=== PATIENT | male | born 1990 | race African-American/Black ===

== ENCOUNTER 2017-07-24 15:42 | Inpatient (IN) | payer OTHER ==
[~2017-07-24] VITALS: Ht 167.6 cm; Wt 78.2 kg
[~2017-07-24 15:42] MED LIST: CLOTRIMAZOLE15 GM TOP; HALOPERIDOL2 M1 PO; HALOPERIDOL5 MG PO; HYDROCORTISO28.35 GM EXT; NICOTINE PATCH1 EAC1 TOP; PREDNISONE10 M2 PO
--- NOTE | 2017-07-24 16:26 | ED PSYCHIATRIC COMPLAINT ---
History of Present Illness General Chief Complaint: General Adult Stated Complaint: BIBA FOR NON COMPLIANCE WITH MEDS Source: patient, EMS, police Exam Limitations: PSYCHIATRIC HISTORY Vital Signs & Intake/Output Vital Signs & Intake/Output Vital Signs Date Time Temp Pulse Resp B/P B/P Pulse O2 O2 Flow FiO2 Mean Ox Delivery Rate 07/25 1100 98.3 80 18 124/68 98 Room Air 07/25 0840 97.1 82 18 128/70 98 Room Air 07/25 0620 98.6 86 18 135/75 98 Room Air 07/25 0014 98.7 87 18 144/94 95 Room Air 07/24 2230 98.8 84 17 144/92 98 Room Air 07/24 2009 98.8 106 16 142/93 99 Room Air 07/24 1618 Room Air 07/24 1617 99.0 105 16 142/93 97 Room Air ED Intake and Output 07/25 0000 07/24 1200 Intake Total Output Total Balance Patient 170 lb Weight Weight Reported by Patient Measurement Method Allergies Coded Allergies: No Known Allergies (04/24/17) Reconcile Medications Haloperidol 5 MG TABLET 1 TAB PO BID psychosis Hydrocortisone 0.5 % CREAM..G. 1 BENITO EXT TID rash Nicotine (Nicotine Patch) 7 MG/24 HOUR PATCH.TD24 1 PAT TOP DAILY smoking Triage Note: PATIENT BIBA FROM HOME ON A PEER. THE PATIENT HAS SCHIZOPHRENIA AND HAS NOT BEEN COMPLIENT WITH TAKING HALDOL. THE PATIENT HAD NURSES COMING IN EVERY DAY, BUT NOT ANYMORE. THE PATIENT HAS A HISTORY OF BEING COMBATIVE AND THE FAMILY DOES NOT FEEL SAFE WITH HIM AT HOME. Triage Nurses Notes Reviewed? yes HPI: Patient presents for evaluation of noncompliance with medications for schizophrenia. The patient apparently has refused to have his visiting nurse evaluate him and it seems he has been noncompliant with medications over the past few days. Patient's family is becoming increasingly concerned about his psychiatric state. The patient himself is a rather poor historian and I suspect that he is hearing voices and suffering from walking. (Marisol AGUILAR,Negrito Blum) Past History Travel History Traveled to [place] past 21 day No Medical History Any Pertinent Medical History? 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 No (Marisol AGUILAR,Negrito Blum) Review of Systems Review of Systems Constitutional: Reports: no symptoms. EENTM: Reports: no symptoms. Respiratory: Reports: no symptoms. Cardiovascular: Reports: no symptoms. GI: Reports: no symptoms. Genitourinary: Reports: no symptoms. Musculoskeletal: Reports: no symptoms. Skin: Reports: rash. Neurological/Psychological: Reports: no symptoms. Hematologic/Endocrine: Reports: no symptoms. Immunologic/Allergic: Reports: no symptoms. All Other Systems: Reviewed and Negative (Marisol AGUILAR,Negrito Blum) Physical Exam Physical Exam General Appearance: SEE BELOW Neurological/Psychiatric: SEE BELOW Comments: General: Alert, calm, cooperative Head: Normocephalic, atraumatic Eyes: Normal inspection, no nystagmus, EOMI Ears: Normal inspection Nose: Normal inspection Throat: Moist mucosa Neck: Supple, no goiter Heart: Regular rate and rhythm, no murmurs rubs or gallops Lungs: Clear to auscultation bilaterally with good air entry Abdomen: Soft nontender nondistended, normal bowel sounds Chest: Nontender Extremities: Normal range of motion grossly, no tremors present, no cyanosis clubbing or edema of the upper extremities Neurologic: cranial nerves II through XII grossly intact, speech clear but sparse, gait normal Psychiatric: No apparent delusions, no pressured speech but I suspect thought blocking and auditory hallucinations (Marisol AGUILAR,Negrito Blum) SAD PERSONS Done? unobtained due to conditi (Lizzette AGUILAR,Magdy Kaiser) Progress Differential Diagnosis: schizophrenia Comments: 07/24/2017 7:25:43 PM I have reevaluated Noe. His affect has flattened considerably and he is nearly noncommunicative. I feel he is responding to internal stimuli, auditory hallucinations and is thought blocking. The audio video repairer was unable to evaluate him. I have had a lengthy discussion with him regarding speaking with the audio video repairer and restarting his usual medications. However I was unable to get any answer from him regarding these 2 issues. He seems nearly mute. We will need to keep him here in the emergency department until we are able to better evaluate him from a psychological standpoint. 07/24/2017 11:27:20 PM patient signed out to Dr. Crocker at shift chart changer. Crisis evaluation pending. (Marisol AGUILAR,Negrito Blum) Plan of Care: Orders Procedure Date/time Status Regular Diet 07/25 B Active Admit to inpatient 07/25 1410 Active Patient Safety Monitor 07/24 162 Active URINE DRUG SCREEN FOR ER ONLY 07/24 162 Complete ETHANOL 07/24 162 Complete CBC WITHOUT DIFFERENTIAL 07/24 162 Complete BASIC METABOLIC PANEL 07/24 162 Complete ED CRISIS PSYCH CONSULT 07/24 162 Active Current Medications Sig/Kyle Start time Last Medication Dose Stop Time Status Admin Haloperidol 5 MG ONE ONE 07/25 1415 UNVr (Haldol) 07/25 1416 Laboratory Tests 07/24/17 1645: Urine Opiates Screen < 100.00, Methadone Screen < 40, Barbiturate Screen < 60, Ur Phencyclidine Scrn < 6.00, Amphetamines Screen < 100, U Benzodiazepines Scrn < 85, Urine Cocaine Screen < 50, Urine Cannabis Screen < 5.00 07/24/17 1640: Anion Gap 17 H, Estimated GFR > 60, BUN/Creatinine Ratio 12.0, Glucose 98, Calcium 9.8, CBC w Diff NO MAN DIFF REQ, RBC 5.32, MCV 90.2, MCH 30.6, RDW 13.5, MPV 8.4, Gran % 72.4, Lymphocytes % 20.4 L, Monocytes % 6.3, Eosinophils % 0.2, Basophils % 0.7, Absolute Granulocytes 4.0, Absolute Lymphocytes 1.1 L, Absolute Monocytes 0.3, Absolute Eosinophils 0, Absolute Basophils 0, PUBS MCHC 33.9, Serum Alcohol < 10.0 7 AM 07/25 PATIENT SIGNED OUT TO ME BY DR CROCKER, PENDING CRISIS REEVALUATION. 2:10 PM PATIENT ADMITTED TO [facility]. (Lizette AGUILAR,Debbie) Hand-Off Endorsed To: Debbie Bauer MD Endorsed Time: 0700 Pending: consult Comments: 07/24/2017 11:27:20 PM patient signed out to Dr. Crocker at shift chart changer. Crisis evaluation pending. (Lizzette AGUILAR,Magdy Kaiser) Departure Departure Condition: Stable Referrals: Patient Has No Primary Care Dr (PCP/Family) Departure Forms: Customer Survey General Discharge Information (Marisol AGUILAR,Negrito Blum) Departure Disposition: STILL A PATIENT Clinical Impression Primary Impression: Schizophrenia (Lizzette AGUILAR,Magdy Kaiser) Departure Time of Disposition: 1409 Psych Admission Note Psychiatric Admission: I have seen and evaluated RICARDO MIX. I have also reviewed all the pertinent lab results and diagnostic results. RICARDO MIX will be admitted to our inpatient Psychiatric unit for treatment and care. (Lizette AGUILAR,Debbie)
[2017-07-24 16:56] LABS: ABSOLUTE BASOPHIL COUNT 0 /CUMM (0.0-0.2); ABSOLUTE EOSINOPHIL COUNT 0 /CUMM (0.0-0.7); ABSOLUTE LYMPH COUNT 1.1 /CUMM (1.2-3.4); ABSOLUTE MONOCYTE COUNT 0.3 /CUMM (0.10-0.60); BASOPHIL % 0.7 % (0.0-2.0); EOSINOPHIL % 0.2 % (0-5); GRANULOCYTE % 72.4 % (42.2-75.2); HEMATOCRIT 47.9 % (42-52); MEAN CORPUSCULAR HGB 30.6 PG (27.0-31.0); MEAN CORPUSCULAR HGB CONC 33.9 G/DL (33.0-37.0); MEAN CORPUSCULAR VOLUME 90.2 FL (80.0-94.0); MEAN PLATELET VOLUME 8.4 FL (7.4-10.4); PLATELET COUNT 207 /CUMM (130-400); RBC DISTRIBUTION WIDTH 13.5 % (11.5-14.5); RED BLOOD CELL CT 5.32 /CUMM (4.70-6.10); WHITE BLOOD CELL COUNT 5.5 /CUMM (4.8-10.8)
--- NOTE | 2017-07-24 19:13 | ED PSY CRISIS COLLATERAL NOTE ---
Collateral Note Collateral Note Family/Inform/Mina Contacts: Collateral with patient's sister, Estuardo Zarate [phone]: Sister states she believes patient has not been taking his medications for at least 4 days. He was receiving visiting nursing services daily through [facility], but according to sister, they have not come to the home. Sister reports she has not been home since Sunday and states patient was fine. She returned home today and states "I see him, he does not look ok." She had difficulty describing what that meant, but states "he's scaring us, we are talking to him and he won't respond." She also believes that patient has been drinking alcohol. He sees a Psychiatrist and attends "drug and alcohol courses" at [facility]; sister could not remember provider's names. She states when he was discharged from Inpatient Psychiatry, he was "doing good." She believes he is paranoid and states "I feel he will harm somebody." Sister would like to be called with an update.
--- NOTE | 2017-07-25 11:00 | ED PSYCH CRISIS CONSULTATION ---
Crisis Consult Basic Assessment Date of Consult: 07/25/17 Responsible Person/Accompanied By: Self Insurance Authorization: Insurance #1: Insurance name: SCOTT FARRELL Phone number: Policy number: [id number] Group number: Authorization number: ED Provider: Patient's ED Provider: Debbie Bauer MD Primary Care Physician: Patient's PCP: Patient Has No Primary Care Dr PCP's Phone Number: Current Psychiatrist: Dr. Carson (Dr. Carson) Chief Complaint: Medication non-compliance Patient's Quote: "people keep calling the police and the ambulance" Present Illness: Pt is a 26 year old single male presenting to the ED on a PEER. PEER states the pt was uncooperative and would not respond to the police, also per family reports the pt has not been taking medication. Pt currently denies SI/HI/AH/VH or feeling hopeless/helpless/worthless. On a scale of 1-10 (10 being most severe ) pt rates anxiety a 7 and depression 4/5. Pt dx with schizophrenia, recently discharged from [facility] due to medication non-compliance, paranoid bx, AH, and HI. Upon d/c the pt's mental status had improved. Pt reports staying with his sister who had not been home and "all these people stay there, come and go". This inspector automatic typewriter confirmed pt's residing with sister who stated he is no longer able to return. The pt is monitored by multiple family members including uncle and cousins who visit the home intermittently. The pt has been receiving services from [facility] (daily service, last visit 07/19/17) and [facility] (pt reports missed appointments due to transportation issues). Pt reports he is unsure as to why the police were called and states he is taking his medication and "doing good". Pt presents in hospital scrubs with anxious mood and blunted affect, speech delayed. Pt's denies substance use, states he is currently applying for jobs and trying to attend night school. Pt reports decrease in appetite, difficulty sleeping despite medication causing him to feel fatigued. Pt denies change in motivation, concentration, or energy. Collateral obtained from the pt's sister, Jennifer Bellamy ([phone] ). The pt's sister reports that she has not been in the home until Sunday when she reports observing "the pt looked like he does when he has an episode." The pt's sister explained she felt the pt "wasn't himself" as evidenced by looking pissed off and not responding to others. Pt's sister reports no one has seen the pt take his medication and believes he has not taken medication for 5 days. Mia states she is unable to "take care of an adult" noting he may not return to her home and she would like him "in a program". Mia reports she called 911 twice yesterday (07/25/17) due to pt "not doing well." The pt's sister reports she is concerned the pt is "at the beginning of an episode" and afraid of "what he might do." Patient's Address: [address] [place] [address] Other Phone Number: Who Do You Live With? Sister (no longer welcome per sister) Family/Informants Interviewed: Sister, Jennifer Bellamy ([phone]) Allergies - Coded Allergies: No Known Allergies (04/24/17) Laboratory Results: Laboratory Tests 07/24/17 1645: Urine Opiates Screen < 100.00, Methadone Screen < 40, Barbiturate Screen < 60, Ur Phencyclidine Scrn < 6.00, Amphetamines Screen < 100, U Benzodiazepines Scrn < 85, Urine Cocaine Screen < 50, Urine Cannabis Screen < 5.00 07/24/17 1640: Anion Gap 17 H, Estimated GFR > 60, BUN/Creatinine Ratio 12.0, Glucose 98, Calcium 9.8, CBC w Diff NO MAN DIFF REQ, RBC 5.32, MCV 90.2, MCH 30.6, RDW 13.5, MPV 8.4, Gran % 72.4, Lymphocytes % 20.4 L, Monocytes % 6.3, Eosinophils % 0.2, Basophils % 0.7, Absolute Granulocytes 4.0, Absolute Lymphocytes 1.1 L, Absolute Monocytes 0.3, Absolute Eosinophils 0, Absolute Basophils 0, PUBS MCHC 33.9, Serum Alcohol < 10.0 (Sandi Fontaine) Basic Assessment Insurance Authorization: Insurance #1: Insurance name: SCOTT Nascimento [employer]og[employer] JAMI Phone number: Policy number: [id number] Group number: Authorization number: LUIS ARMANDOZIANAYELI MIX [id number] 1990 RICARDO MIX [id number] Pended Authorization # Client Authorization # Type of Request [id number] INITIAL (Goran LUKE,Deyanira) Current Medications - Scheduled Medications Haloperidol 5 MG TABLET 1 TAB PO BID psychosis #14 TAB Prescribed by Asael Mann on 06/22/17 Last Taken: 07/24/17 0800 (John LUKE,Aly) Past History Past Medical History Neurological: NONE EENT: NONE Cardiovascular: NONE Respiratory: NONE Gastrointestinal: NONE Hepatic: NONE Renal: NONE Musculoskeletal: NONE Psychiatric: schizophrenia Endocrine: NONE Blood Disorders: NONE Cancer(s): NONE 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: 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 and herpes, patient report Past Surgical History Surgical History: non-contributory Psychosocial History Strengths/Capabilities: OP services in place and family supports Physical Limitations (Interventions): None Psychiatric Treatment History Psych Treatment Psychiatric Treatment Yes Inpatient Treatment Yes Outpatient Treatment Yes Location of Treatment [facility] Reason for Treatment Schizophrenia and alcohol use d/o Dates of Treatment Multiple, most recent [facility] June 2017, currently at care Response to Treatment Pt continues to struggle with medication compliance, psychiatric symptoms have decreased upon d/c from [facility] Diagnosis by History: F20.9 Schizophrenia F12.20 Cannabis use d/o 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 Alcohol use d/o, moderate Pt reports substance use is in remission Substance Use/Abuse History Drug Use/Abuse Substances Used/Abused Yes Substance Used/Abused Alcohol First Use unknown Last Used June 2017 How much used/taken unknown How often daily For how long unknown Route of use oral Substance Abuse Treatment Substance Abuse Treatment Past Substance Abuse TX Yes Inpatient Treatment Yes Outpatient Treatment Yes Location of Treatment unknown Reason for Treatment alcohol use d/o Dates of Treatment unknown Response to Treatment pt denies use of alcohol or any substances at this time Comments: Pt reports inconsistent with medical records, denies recent substance use (Sandi Fontaine) Current Mental Status Mental Status Orientation: Person, Place, Situation Affect: Anxious, Blunted Speech: Delayed, Soft Neuro-vegetative: Appetite Decreased, Sleep Disturbance Appearance Appearance- Dress/Hygiene: Pt presents in hospital scrubs with mild odor Behaviors Thought Process: Thought Blocking Thought Content: WNL Memory: WNL Insight: Poor SI/HI Risk Assessment Past Suicidal Ideation/Attempts Yes Current Suicidal Ideation/Att No Past Homicidal Ideation/Att: Yes (per records, pt denies) Current Homicidal Ideation/Attempts No Degree of Intent: None Danger To: Self Gravely Disabled: Lack of Insight, Poor Impulse Control, Poor Judgment Risk Factors: chronic/serious med cond., high anxiety/distress, SA/MH hospitalized, substance abuse, poor impulse control, male, limited support Lethality Ratin PTSD Checklist PTSD Done? 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 Carson, pt is reccomended to inpatient admission. The pt requires admission to monitor for safety, further evaluate mental state, and develop safety plan. Type of IP Admission: Voluntary Referrals Patient Has No Primary Care Dr (PCP/Family) (Sandi Fontaine) (Sandi Fontaine)
--- NOTE | 2017-07-25 15:11 | IP CRISIS DIAG ASSESS PSYCH ---
Sandi Fontaine 07/25/17 1510: Diagnostic Assessment Basic Assessment Patient's Quote: "people keep calling the police and the ambulance" Present Illness: Pt is a 26 year old single male presenting to the ED on a PEER. PEER states the pt was uncooperative and would not respond to the police, also per family reports the pt has not been taking medication. Pt currently denies SI/HI/AH/VH or feeling hopeless/helpless/worthless. On a scale of 1-10 (10 being most severe ) pt rates anxiety a 7 and depression 4/5. Pt dx with schizophrenia, recently discharged from [facility] due to medication non-compliance, paranoid bx, AH, and HI. Upon d/c the pt's mental status had improved. Pt reports staying with his sister who had not been home and "all these people stay there, come and go". This senior grant writer confirmed pt's residing with sister who stated he is no longer able to return. The pt is monitored by multiple family members including uncle and cousins who visit the home intermittently. The pt has been receiving services from [facility] (daily service, last visit 07/19/17) and [facility] (pt reports missed appointments due to transportation issues). Pt reports he is unsure as to why the police were called and states he is taking his medication and "doing good". Pt presents in hospital scrubs with anxious mood and blunted affect, speech delayed. Pt's denies substance use, states he is currently applying for jobs and trying to attend night school. Pt reports decrease in appetite, difficulty sleeping despite medication causing him to feel fatigued. Pt denies change in motivation, concentration, or energy. Collateral obtained from the pt's sister, Jennifer Bellamy ([phone] ). The pt's sister reports that she has not been in the home until Sunday when she reports observing "the pt looked like he does when he has an episode." The pt's sister explained she felt the pt "wasn't himself" as evidenced by looking pissed off and not responding to others. Pt's sister reports no one has seen the pt take his medication and believes he has not taken medication for 5 days. Mia states she is unable to "take care of an adult" noting he may not return to her home and she would like him "in a program". Mia reports she called 911 twice yesterday (07/25/17) due to pt "not doing well." The pt's sister reports she is concerned the pt is "at the beginning of an episode" and afraid of "what he might do." Who Do You Live With? Sister (no longer welcome per sister) Feel Safe Where You Live? Yes (referring to sisters) Feel Safe in Your Relationship No If No, Please Elaborate: Pt reports his family "keeps calling the police and the ambulance" and he is not sure why Marital Status: single Do You Have Children? Yes Ages? 11 Primary Language? Greek Language(s) Spoken At Home: Greek Family/Informants Interviewed: Sister, Jennifer Bellamy ([phone]) Allergies - Coded Allergies: No Known Allergies (04/24/17) Consequences of Psych Med Use: Pt's sx improved upon d/c from [facility] while taking medication, currently the pt is not medication compliant Lab Results: Laboratory Tests 07/24/17 1645: Urine Opiates Screen < 100.00, Methadone Screen < 40, Barbiturate Screen < 60, Ur Phencyclidine Scrn < 6.00, Amphetamines Screen < 100, U Benzodiazepines Scrn < 85, Urine Cocaine Screen < 50, Urine Cannabis Screen < 5.00 07/24/17 1640: Anion Gap 17 H, Estimated GFR > 60, BUN/Creatinine Ratio 12.0, Glucose 98, Calcium 9.8, CBC w Diff NO MAN DIFF REQ, RBC 5.32, MCV 90.2, MCH 30.6, RDW 13.5, MPV 8.4, Gran % 72.4, Lymphocytes % 20.4 L, Monocytes % 6.3, Eosinophils % 0.2, Basophils % 0.7, Absolute Granulocytes 4.0, Absolute Lymphocytes 1.1 L, Absolute Monocytes 0.3, Absolute Eosinophils 0, Absolute Basophils 0, PUBS MCHC 33.9, Serum Alcohol < 10.0 Toxicology Screen Completed? Yes Results: negative Symptoms of Use: pt denies substance use Past History Past Surgical History Surgical History NONE Abuse/Trauma History Trauma History/Current Trauma: Denies Legal History Current Legal Status: on probation Have you ever been arrested? Yes Number of Arrests: [address] Dates: Unknown Media Analytics Manager Yes; unknown contact information Psychosocial History Strengths/Capabilities: OP services in place and family supports Physical Limitations (Interventions): None Psychiatric Treatment History Psych Treatment Psychiatric Treatment Yes Inpatient Treatment Yes Outpatient Treatment Yes Location of Treatment [facility] and [facility] Reason for Treatment Schizophrenia and alcohol use d/o Dates of Treatment Multiple, most recent [facility] June 2017, currently at care Response to Treatment Pt continues to struggle with medication compliance, psychiatric symptoms have decreased upon d/c from [facility] Diagnosis by History: F20.9 Schizophrenia F12.20 Cannabis use d/o 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 Alcohol use d/o, moderate Pt reports substance use is in remission Risk Factors: chronic/serious med cond., high anxiety/distress, SA/MH hospitalized, substance abuse, poor impulse control, male, limited support Substance Use/Abuse History Drug Use/Abuse minimum 12mo Hx Substances Used/Abused Yes Substance Used/Abused Alcohol First Use unknown Last Used June 2017 How much used/taken unknown How often daily For how long unknown Route of use oral Substance Abuse Treatment Substance Abuse Treatment Past Substance Abuse TX Yes Inpatient Treatment Yes Outpatient Treatment Yes Location of Treatment unknown Reason for Treatment alcohol use d/o Dates of Treatment unknown Response to Treatment pt denies use of alcohol or any substances at this time Sexual History Sexually Active Yes # of partners 2 Sexual Orientation Heterosexual Use of Protection Yes Sometimes Sexual Concerns: Pt denies Education History Highest Level of Education: not sure Preferred Learning Style: visual, auditory, experiential Current Mental Status Mental Status Orientation: Person, Place, Situation Affect: Blunted Speech: Delayed, Soft Neuro-vegetative: Appetite Decreased, Sleep Disturbance Appearance Appearance- Dress/Hygiene: Pt presents in hospital scrubs with mild odor Behaviors Thought Process: Thought Blocking Thought Content: WNL Memory: WNL Insight: Poor SI/HI Risk Assessment - Minimum 6mo History- Past Suicidal Ideation/Attempts Yes Current Suicidal Ideation/Att No Past Homicidal Ideation/Att: Yes (per records, pt denies) Current Homicidal Ideation/Attempts No Degree of Intent: None Danger To: Self Gravely Disabled: Lack of Insight, Poor Impulse Control, Poor Judgment Risk Factors: chronic/serious med cond., high anxiety/distress, SA/MH hospitalized, substance abuse, poor impulse control, male, limited support Lethality Ratin DSM5/PS Stressors/Medical Prob Diagnosis' (DSM 5, Stressors, Medical): F20.9 Schizophrenia Per medical records 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 Alcohol Use c/o Moderate Current GAF: 28 Aly Lopez 07/26/17 0731: Diagnostic Assessment Current Medications - Scheduled Medications Haloperidol 5 MG TABLET 1 TAB PO BID psychosis #14 TAB Prescribed by Asael Mann on 06/22/17 Last Taken: 07/24/17 0800 Current Mental Status SI/HI Risk Assessment - Minimum 6mo History- Needs/Init TX Plan/Goals: Psychiatric evaluation medication assessment individual, group and family tx coordinated discharge planning AUDIT-C Questionnaire: AUDIT-C Questionnaire: Response Value ETOH use in the past year Never 0 # drinks typical/day Doesn't Drink 0 6 or > drinks per occasion Never 0 Total 0
[2017-07-25 17:30] VITALS: BP 132/78
[2017-07-25 19:56] VITALS: BP 142/86
--- NOTE | 2017-07-25 21:04 | History & Physical ---
General Information and HPI MD Statement: I have seen and personally examined RICARDO MIX and documented this H&P. The patient is a 26 year old M who presented with a patient stated chief complaint of [brought on PEER]. Source of Information: patient, EMS Exam Limitations: no limitations History of Present Illness: 26 yo M recently discharged from [facility], is admitted for schizophrenia and depression. He was apparently noncompliant with his medications over the past few days. Patient was not acting himself. Sister was concerned about his mental state and that he may do something to himself, so she called the police. Patient was brought in on PEER. Patient denies any medical problems and denies chest pain, dyspnea, palpitations , GI or symptoms. 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 Psychosocial History Where do you live? Home Who Do You Live With? sister Services at Home: None Primary Language: Uzbek Smoking Status: Current Everyday Smoker ETOH Use: occasional use Illicit Drug Use: denies illicit drug use Functional Ability ADLs Independent: dressing, eating, toileting, bathing. Ambulation: independent Review of Systems Review of Systems Constitutional: Denies: chills, fever, malaise, weakness. EENTM: Reports: no symptoms. Cardiovascular: Denies: chest pain, orthopena, palpitations. Respiratory: Denies: cough, orthopnea, short of breath, sputum production. GI: Denies: abdominal pain, diarrhea, nausea, vomiting. Genitourinary: Denies: dysuria, frequency, hematuria. Musculoskeletal: Denies: back pain, joint pain, muscle pain. Skin: Reports: no symptoms. Neurological/Psychological: Reports: see HPI. All Other Systems: Reviewed and Negative Exam & Diagnostic Data Last 24 Hrs of Vital Signs/I&O Vital Signs Date Time Temp Pulse Resp B/P B/P Pulse O2 O2 Flow FiO2 Mean Ox Delivery Rate 07/25 1956 96.3 93 142/86 07/25 1730 97.6 96 132/78 07/25 1615 98.2 92 18 137/72 96 Room Air 07/25 1422 97.9 82 18 126/70 98 Room Air 07/25 1100 98.3 80 18 124/68 98 Room Air 07/25 0840 97.1 82 18 128/70 98 Room Air 07/25 0620 98.6 86 18 135/75 98 Room Air Intake & Output 07/26 0800 07/26 0000 07/25 1600 Intake Total Output Total Balance Patient 173 lb Weight Physical Exam General Appearance Alert, Oriented X3, Cooperative, No Acute Distress Skin No Rashes, No Breakdown HEENT Atraumatic, PERRLA, EOMI, Mucous Membr. moist/pink Neck Supple Cardiovascular Regular Rate, Normal S1, Normal S2, No Murmurs Lungs Clear to Auscultation, Normal Air Movement Abdomen Normal Bowel Sounds, Soft, No Tenderness Neurological Exam Findings: Normal Gait, Normal Speech, Strength at 5/5 X4 Ext, Sensation Intact, Cranial Nerves 3-12 NL Cranial Nerves II through XII: Intact Extremities No Edema, Normal Pulses, No Tenderness/Swelling Vascular Normal Pulses, Pulses Symmetrical Last 24 Hrs of Labs/Reynaldo: Laboratory Tests 07/24/17 1645: Urine Opiates Screen < 100.00, Methadone Screen < 40, Barbiturate Screen < 60, Ur Phencyclidine Scrn < 6.00, Amphetamines Screen < 100, U Benzodiazepines Scrn < 85, Urine Cocaine Screen < 50, Urine Cannabis Screen < 5.00 07/24/17 1640: Anion Gap 17 H, Estimated GFR > 60, BUN/Creatinine Ratio 12.0, Glucose 98, Calcium 9.8, CBC w Diff NO MAN DIFF REQ, RBC 5.32, MCV 90.2, MCH 30.6, RDW 13.5, MPV 8.4, Gran % 72.4, Lymphocytes % 20.4 L, Monocytes % 6.3, Eosinophils % 0.2, Basophils % 0.7, Absolute Granulocytes 4.0, Absolute Lymphocytes 1.1 L, Absolute Monocytes 0.3, Absolute Eosinophils 0, Absolute Basophils 0, PUBS MCHC 33.9, Serum Alcohol < 10.0 Diagnostic Data EKG Results -- CXR Results -- Assessment/Plan Assessment: 26 yo M recently discharged from [facility], is admitted for schizophrenia and depression. - Continue management as per Psych team. - Smoking cessation counseling, nicotine patch. DVT ppx - low risk. As Ranked By This Provider Problem List: 1. Schizophrenia 2. Depression Miscellaneous Miscellaneous Documentation Attending Case Discussed With: Chepe Martínez MD Primary Care Physician: Patient Has No Primary Care Dr Patient sees these Specialists -- Level of Patient Care: KAYLENE Malave Attending MD Review Statement Attending Statement Attending MD Statement: examined this patient, discuss w/resident/PA/SHED WORKERS SUPERVISOR
--- NOTE | 2017-07-25 21:07 | Admission Certification ---
Admission Certification Certification Statement - As attending physician, I certify that at the time of - admission, based on clinical presentation, severity of - symptoms, need for further diagnostic testing and - therapeutic interventions, and risk of adverse outcomes - without in-hospital treatment, in my clinical assessment, - this patient requires an acute hospital stay for a minimum - of two nights or longer. I have also considered psychsocial - factors such as support system, advanced age, financial - issues, cognitive issues, and failed out-patient treatments, - past re-admission history, safety of patient, and lack of - compliance as applicable. Specific rationale supporting this admission is: Schizophrenia, depression.
--- NOTE | 2017-07-26 07:27 | SOCIAL WORKER SOCIAL HX PSYCH ---
Social History Basic Assessment Insurance Authorization: Insurance #1: Insurance name: SCOTT FARRELL Phone number: Policy number: [id number] Group number: Authorization number: Primary Care Physician: Patient's PCP: Patient Has No Primary Care Dr PCP's Phone Number: Present Problem: Pt is a 26 year old single male presenting to the ED on a PEER. PEER states the pt was uncooperative and would not respond to the police, also per family reports the pt has not been taking medication. Pt currently denies SI/HI/AH/VH or feeling hopeless/helpless/worthless. On a scale of 1-10 (10 being most severe ) pt rates anxiety a 7 and depression 4/5. Pt dx with schizophrenia, recently discharged from [facility] due to medication non-compliance, paranoid bx, AH, and HI. Upon d/c the pt's mental status had improved. Pt reports staying with his sister who had not been home and "all these people stay there, come and go". This check writer confirmed pt's residing with sister who stated he is no longer able to return. The pt is monitored by multiple family members including uncle and cousins who visit the home intermittently. The pt has been receiving services from [facility] (daily service, last visit 07/19/17) and [facility] (pt reports missed appointments due to transportation issues). Pt reports he is unsure as to why the police were called and states he is taking his medication and "doing good". Pt presents in hospital scrubs with anxious mood and blunted affect, speech delayed. Pt's denies substance use, states he is currently applying for jobs and trying to attend night school. Pt reports decrease in appetite, difficulty sleeping despite medication causing him to feel fatigued. Pt denies change in motivation, concentration, or energy. Collateral obtained from the pt's sister, Jennifer Bellamy ([phone] ). The pt's sister reports that she has not been in the home until Sunday when she reports observing "the pt looked like he does when he has an episode." The pt's sister explained she felt the pt "wasn't himself" as evidenced by looking pissed off and not responding to others. Pt's sister reports no one has seen the pt take his medication and believes he has not taken medication for 5 days. Mia states she is unable to "take care of an adult" noting he may not return to her home and she would like him "in a program". Mia reports she called 911 twice yesterday (07/25/17) due to pt "not doing well." The pt's sister reports she is concerned the pt is "at the beginning of an episode" and afraid of "what he might do." Primary Language? 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 No Relationship w/Mother: Mother 3 years ago Relationship w/Father: No relationship with father Any Sibling(s)? Yes Sibling's Gender(s)/Age(s): female Sibling 1: Relationship w/Sibling(s): Lives with sister Relationship w/Friends: None noted Abuse/Trauma History Trauma History/Current Trauma: Denies Legal History Have you ever been arrested Yes Number of Arrests: 1 Hx of Adult Legal Charges? 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 No ADL Limitations: None noted Josephine/Social/Peer Relations None noted Meaningful Activities: Pt unable to identify hobbies/interests at this time. 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 Yes Relapse History? Yes Explain: hx of on and off etoh Have You Ever Attended ? No Symptoms of Use: pt denies substance use Substance Abuse Treatment Substance Abuse Treatment Inpatient Treatment Yes Outpatient Treatment Yes Location of Treatment unknown Reason for Treatment alcohol use d/o Dates of Treatment unknown Response to Treatment pt denies use of alcohol or any substances at this time Sexual History Sexually Active Yes # of partners 2 Sexual Orientation Heterosexual Use of Protection Yes Sometimes Sexual Concerns: Pt denies Education History Highest Level of Education: not sure Preferred Learning Style: visual, auditory, experiential Employment History Employment Unemployed History Have You Been in The ? No Current Mental Status Mental Status Orientation: Person, Place, Situation Affect: Blunted Speech: Delayed, Soft Neuro-vegetative: Appetite Decreased, Sleep Disturbance Appearance Appearance- Dress/Hygiene: Pt presents in hospital scrubs with mild odor Behaviors Thought Process: Thought Blocking Thought Content: WNL Memory: WNL Insight: Poor SI/HI Risk Assessment Past Suicidal Ideation/Attempts Yes Current Suicidal Ideation/Att No Past Homicidal Ideation/Att: Yes (per records, pt denies) Current Homicidal Ideation/Attempts No Degree of Intent: None Danger To: Self Gravely Disabled: Lack of Insight, Poor Impulse Control, Poor Judgment Lethality Ratin - Conclusion and Recommendations for treatment - and discharge planning Summary: pt reports feeling depressed and almost daily etoh use. Poor sleep. Unsure of where he will live since he can't return to his sister's. Pt agrees to work with [facility]. Unsure of consistent medication compliance. PT denying SI; AH/VH. Pt willing to continue with Care post discharge.
[2017-07-26 07:59] VITALS: BP 122/79
[2017-07-26 12:07] VITALS: BP 135/84
--- NOTE | 2017-07-26 13:57 | SOCIAL WORKER PROG NOTE PSYCH ---
See Addendum Social Work Progress Note Progress Note Noe reported that he is having trouble with sleep. Reports disrupted sleep and trouble falling asleep. He denies auditory hallucinations or visual hallucinations. He denies nightmares that may be contributing to poor sleep. He reports that his mood is "up and down". He stated that he gets very depressed when he is down, but denied suicidal thoughts. He reports having [facility] services with [facility]. He doesn't really remember the last time he saw the nurse. He reported that they were not seeing him over the weekend. He said there were times that they would miss eachother as well. He admitted to drinking alcohol daily to the point that he is intoxicated. He may not be remembering to take his meds or is possibly missing the nurse due to his drinking. I asked when he was in rehab last? He said in [place] in 2009. He has currently been enrolled in the dual IOP at [facility]. He is on probation with [facility]. P.O.'s name is Johnathan Mendoza. He was willing to involve Johnathan in his tx and signed a release for him. He signed a release for his Uncle Leia as well, but not for his sister. I explained that a referral to [facility] was done by the crisis addiction social worker, and that someone will meet with him on the unit here to discuss what his needs are. He was open to their services. Reports wanting help with his drinking, his mood, and housing. He is open to the idea of possibly going to a rehab. I spoke with [facility]'s Lashae Bailey, she reports that Noe has been sporadically coming to the program and he is still enrolled with them. Updated her as to why he was here. Called Johnathan Mendoza at [facility] and left a message. Bautista Lyles from [facility] came to meet with Noe this afternoon. Bautista will most likely meet with him again on Sunday.
[2017-07-26 15:42] VITALS: BP 148/93
--- NOTE | 2017-07-26 17:29 | CPS PROVIDER INIT ASMT PSYCH ---
Psychiatric Admission Lead Cook's Note Reviewed: Yes Patient Seen and Examined: Yes Identifying Information: 26 yo BM admitted on 07/25/17 on a voluntary basis, referred by ER. He has a hx of schizophrenia, cannabis use d/o, PCP use d/o and alcohol use d/o. Chief Complaint: Sister was concerned that patient looked as he does when he has an episode. Sister explained that she felt that the patient "wasn't himself" because he was looking "pissed off and [was] not responding to others." Sister believed patient was off medications for 4+ days. VNS was not coming to the home. Sister believed that patient was drinking alcohol. Sister expressed belief that the patient was paranoid and felt that the patient would harm somebody. Reaction to Hospitalization: "I just want to get out." History of Present Illness Onset of Illness: Chronic mental illness. Last CPS discharge 06/22/17. Circumstances Leading to Admission: Presumed medication and VNS non-compliance. Alcohol use. Problem(s) Justifying Need for Admission: Appearing paranoid. Other HPI: Patient reports that his family was concerned about him, so they called an ambulance. Reports that his family thought he was not taking his medications and that he was using drugs and alcohol. Patient admits to intermittent medication compliance. Reports consuming alcohol at a couple of beers a day. Reports he is "not feeling too well, just my life in general, all messed up." He reports he is having "difficulties with my living situation, just everything, " including decisions that he is making. Reports he has not been going for follow-up at [facility] and things like that. Reports sleep has not been that good for about a year. Reports appetite fluctuates. Patient does not know his weight or whether it has changed or not. Reports he does not have energy. Nursing staff reported in team meeting that the patient is denying suicidal ideation. Describes as very quiet, calm. Past Psychiatric History Past Diagnosis(es)- if any: Schizophrenia. Cannabis use disorder. History of PCP use disorder. Alcohol use disorder. Past Precipitating Factors- if any: Bizarre behaviors and believes. - Include inpatient and outpatient treatment Treatment History: Reportedly followed by [facility]. Followed at [facility] by Roddy Blanco and by Kadi Dowd APRN. Patient reports previous hospitalization at [facility]. This was from 06/16/17 through 06/22/17. History of Suicide Attempts or Gestures Denies. Substance Abuse History: Tobacco at about 2 cigarettes per day. Alcohol at 2 beers per day. Denies recent use of cannabis. Denies use of cocaine or other drugs. Admits to having tried PCP in the past. Allergies: Coded Allergies: No Known Allergies (04/24/17) Home Med List: NicoDerm 7 mg per day. Haldol 5 mg twice daily Hydrocortisone 0.5% cream topically 3 times daily. - Include any medical condition(s) that may - impact the patient's recovery/remission Past Medical History: Patient apparently has reported in the past a history of syphilis and herpes. At this point, he denies history of syphilis but endorses history of herpes. 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 Substance Use: Substance use: Reports mother used to drink a lot. Reports sister drinks. Paternal uncle used to drink a lot. Suicides: Suicides: Unknown. Social History Living Situation: Has been living with sister but apparently is not welcome back. Significant Relationships (family/friends): Sister. Apparently uncle is in the picture. Mother in 2013 from heart disease. Does not know his father. Education: Dropped out in the 10th grade. Vocation/Occupation: Unemployed. No income. Legal: Reports history of a few arrests for drug possession and weapons. Other Social History: Grew up in [place]. Healthly Behaviors Screening Tobacco Screening Tobacco Use from ED Docu: Current Daily Use Daily Tobacco Use Amount/Type: =< 4 Cigarettes daily - If tobacco counseling indicated - the following topics are required. - #1 Recognizing dangerous situations. - #2 Coping Skills. - #3 Basic information about quitting. Status of Tobacco Cessation Counseling: #1, #2 AND #3 Completed Cessation Med Status Nicotine Patch Ordered Alcohol Screening - ETOH screen POS if BAL >=80 or Audit-C>= M4/F3 Audit-C Score from Diag Assess: 0 Blood Alcohol Level: Laboratory Tests 07/24 1639 Toxicology Serum Alcohol (<10 MG/DL) < 10.0 Alcohol Use Screening Results: Neg per Audit C &/or BAL - If ETOH counseling indicated - the following topics are required. - #1 Express concern about the patient's - drinking at unhealthy levels, include informing - of national norms for moderate drinking: - men <= 14 drinks/week, max 4 drinks/occasion - women <= 7 drinks/week, max 3 drinks/occasion - #2 Providing feedback, including linking alcohol to - negative physical effects (liver injury, hypertension) - negative emotional effects (relationship problems and - depression) - negative occupational consequences (reduced work - performance) - #3 Advising the patient to abstain from alcohol or - to drink below national norms for moderate drinking - (as listed above). Status of ETOH Use Counseling: N/A B/C NO ETOH Use Metabolic Screening - Screen if on a Neuroleptic Medication - Metabolic screening should include: - Blood Pressure, BMI, Glucose or Hgb A1c, & a - Lipid profile from within the past 365 days. Metabolic Screening () Not Applicable, patient not on a neuroleptic. OR () Patient on a neuroleptic(s) . Enter below results for Hemoglobin A1C, and lipid panel if obtained during the last 365 days. BMI: 27.800 Blood Pressure: 148/93 Laboratory Results From [facility] (If applicable): [x] Lab Cholesterol 318 MG/DL H 07/24/17 1640 Cholesterol/HDL Ratio 4 % 07/24/17 [facility] HDL Cholesterol 76 mg/dL H 07/24/17 1640 Hemoglobin A1c 5.6 % 07/24/17 1640 LDL Cholesterol, Calc 205 mg/dL H 07/24/17 1640 Triglycerides 188 mg/dL H 07/24/17 1640 Exam and Plan Mental Status Examination Ambulation Status: Ambulation is within normal limits. Appearance: Black male dressed in a sweater and scrub pants, sitting in a chair in no acute distress. Attitude towards examiner: Calm, polite and cooperative. Psychomotor activity: There is no psychomotor agitation or retardation. Behavior: Unremarkable. Quality of speech: Speech is somewhat slowed, normal in volume and tone. Affect: Patient seems mildly befuddled. Affect is calm and blunted. Mood: Rates sad mood about 7-8/10. Rates anxiety about 7-8/10. Feels hopeless, helpless and worthless sometimes. Feels guilty. Suicidal Ideation: Denies active and passive suicidal ideation. Homicidal Ideation: Denies homicidal ideation. Hallucinations: Reports he hears voices when he is off medication. [place] voices today. He is vague and guarded as to content. Patient was unable to answer about visual hallucinations. Paranoid/Delusional Material: Patient was unable to answer about paranoid ideation. Denies magical nicolas. Difficulties with thought organization: Thinking is generally well-organized but he seems somewhat befuddled. Insight: Limited. Judgment: Limited to poor. Orientation: Oriented 3. Cognition: Grossly intact. Memory Function: Grossly intact. Estimate of intellectual functioning: Average. Assets/Strengths Patient Identified Assets/Strengths: Reports he is good at math. Impression/Plan Impression and Plan: The patient has been rehospitalized in the context of likely limited medication compliance. He reports consuming about 2 beers a day. It sounds as though he has been missing outpatient appointments at the [facility]. Sister reportedly will not accept him home. Urine drug screen and serum alcohol level were negative. - Include all active medical diagnosis that require tx DSM 5 Diagnosis(es): Schizophrenia. Alcohol use disorder, moderate. History of cannabis use disorder. History of phencyclidine use disorder. - Initial Tx Plan for Active Psych & Medical Conditions Treatment Plan: The patient will be monitor on the unit for safety, psychosis and mood disorder. Additional information is needed from collaterals. Haldol has been restarted at 5 mg p.o. twice daily. We will asked the patient to consider going on Haldol decanoate. Anticipate once clinically stable, that the patient will be discharged to the community and return to outpatient treatment at [facility]. - Factors that would help patient function - in a less restrictive setting. Factors: Not paranoid.
[2017-07-26 19:58] VITALS: BP 143/92
--- NOTE | 2017-07-27 00:34 | Event Note ---
Event Note Event Note: I was asked to re-evaluate for hyperlipidemia and hypertension. Patient has no underlying diagnosis of these. His lipid panel was from Jul 24 and not fasting , hence we will repeat lipid panel in AM. His BP has been in the range of 120-140's/80-90's, ?unclear if he withdrawing from any substance or drug. He is young, would watch him for now. He will need outpatient follow up with PCP and work up for secondary causes of hypertension ( if he remains hypertensive on outpatient eval) prior to instituting anti- hypertensive therapy.
[2017-07-27 07:47] VITALS: BP 128/90
--- NOTE | 2017-07-27 14:20 | CP SOUTH PROGRESS NOTE PSYCH ---
Psych (Inpt) Progress Note Progress Note Include the following elements, when applicable: Involvement in the active treatment of the patient with behavioral observations of the patient and the patient's response to the treatment. Review of the ongoing treatment process in the context of the treatment plan. Indication of how multi-disciplinary staff members are carrying out the treatment plan. Plans for future interventions and recommendations for revision of the treatment plan. Liaison with other physicians/providers. Progress Note: Case and treatment plan discussed in team meeting. Staff reports that the patient is present but is passive. Attended AA meeting. Slow to respond. Reported feeling better. On probation. We will try to arrange a family meeting with uncle and look into placement at a rehab. Patient seen with medical student at 10:30 AM. He was in his room prior to meeting with us in office. Thought processes seem faster today. Feels all right, a little bit better. States Haldol keeps him calm. Affect is calm and blunted. States he is no longer having auditory hallucinations. Reports mood is better than it was before he got here. Has no complaints. Reports trazodone last night helped him sleep. Rate sad mood 5/10 and anxiety 6/10. Denies feeling hoepless, helpless or worthless. Feels guilty for having not taken medications and for drinking alcohol. Denies active and passive suicidal ideation. Denies homicidal ideation, visual hallucinations and paranoid ideation. Reports appetite has improved and that he is eating again. Energy: feels a little fatigued. I asked about Cogentin and he reported he was taken off of Cog[facility] in [facility] because of blurry vision. Patient agrees to Haldol Decanoate. I explained that he will need to overlap oral Haldol and Haldol Decanoate for several months, and he agreed to this. IMPRESSION: Slow progress. Continue present treatment plan. We will now start Haldol Decanoate 100 mg IM every 4 weeks. EKG did not show any QT or QTC prolongation but computer reading suggested early repolarization. Will ask hospitalist to review EKG. Housing remains problematic. Anticipate likely discharge sometime next week. Case discussed with Kadi Dowd APRN.
--- NOTE | 2017-07-27 14:53 | PN- Att Addend ---
Attending Addendum Attending Brief Note Patient seen and examined, denies any current complaint. Patient was found to have slightly high blood pressure as well as abnormal lipid panel. Vital Signs Date Time Temp Pulse Resp B/P B/P Pulse O2 O2 Flow FiO2 Mean Ox Delivery Rate 07/27 0747 96.9 92 128/90 07/26 1957 97.4 89 143/92 07/26 1542 108 148/93 on exam; aox3, nad. cv: s1,s2, rrr resp; clear abd; soft, bs+ Laboratory Tests 07/27 616 Chemistry Triglycerides (<150 mg/dL) 293 H Cholesterol (< 200 MG/DL) 274 H LDL Cholesterol, Calc (65 - 129 mg/dL) 154 H HDL Cholesterol (40 - 60 mg/dL) 62 H Cholesterol/HDL Ratio (0.00 - 4.88 %) 4 EKG>>>> NSR. A/P; 26-year-old male who was originally admitted to Inpatient Psychiatry with schizophrenia and depression found to have abnormal lipid profile with slightly elevated blood pressure. I discussed with the patient about controlling both with diet modification versus adding medications. He wants to try both. I will add low-dose Lipitor (if LFTs are normal) as well as hydrochlorothiazide at a low dose. Will monitor the blood pressure. Psych management per psych.
[2017-07-27 16:12] VITALS: BP 135/80
--- NOTE | 2017-07-27 17:21 | SOCIAL WORKER PROG NOTE PSYCH ---
See Addendum Social Work Progress Note Progress Note Noe said he was doing okay. We talked about putting in a referral to [facility] [place] and [facility]. He was agreeable. I informed him that he has a phone screening on Sunday at 1pm with [facility] in [place]. He still doesn't understand how his sister was allowed to have the police bring him here. He denies feeling suicidal or homicidal. I told him she was concerned enough about his behavior to have him checked out. I reminded him that he did share with me yesterday that he had been having times of significant depression and that he said he wanted help. He didn't disagree. Acknowledged that this may not have been the way he wanted to get it, but he is here and we are trying to support him with his problems. He remains quiet, soft spoken, cooperative. Faxed his referral to [facility] [place] and [facility].
[2017-07-27 19:47] VITALS: BP 141/79
[2017-07-28 08:25] VITALS: BP 131/81
--- NOTE | 2017-07-28 11:54 | CP SOUTH PROGRESS NOTE PSYCH ---
Psych (Inpt) Progress Note Progress Note Include the following elements, when applicable: Involvement in the active treatment of the patient with behavioral observations of the patient and the patient's response to the treatment. Review of the ongoing treatment process in the context of the treatment plan. Indication of how multi-disciplinary staff members are carrying out the treatment plan. Plans for future interventions and recommendations for revision of the treatment plan. Liaison with other physicians/providers. Progress Note: Stated that he was doing fairly well, that the plan is to get more mentally stable and feels he is a little unstable, in regards to his memory and feeling somewhat confused in addition to feeling tired. Withdrawn, less energetic. Overall does not appear to have gross psychosis compared to previously. Stated that he hopes to maintain his probation and stay out of group home, but is worried about ability to do so and his housing. MSE: Pleasant man, quiet, withdrawn. Speech regular to slow rate and volume normal. Fair eye contact, no psychomotor slowing (mild if any) and no agitation. Mood is neutral, affect is constricted. Thought process linear overall, concrete. Mildly tangential. No gross thought disorder elicited, though he is somewhat oddly related and asks odd questions. Not hallucinating and no evidence of thoughts to harm self/others. Insight is fair, judgment fair. Plan: stabilizing, continue current plan of care.
[2017-07-28 12:11] VITALS: BP 130/76
[2017-07-28 16:11] VITALS: BP 137/76
[2017-07-28 20:07] VITALS: BP 137/75
[2017-07-29 07:54] VITALS: BP 137/84
[2017-07-29 12:18] VITALS: BP 126/68
[2017-07-29 16:02] VITALS: BP 129/76
--- NOTE | 2017-07-29 16:31 | CP SOUTH PROGRESS NOTE PSYCH ---
Psych (Inpt) Progress Note Progress Note Include the following elements, when applicable: Involvement in the active treatment of the patient with behavioral observations of the patient and the patient's response to the treatment. Review of the ongoing treatment process in the context of the treatment plan. Indication of how multi-disciplinary staff members are carrying out the treatment plan. Plans for future interventions and recommendations for revision of the treatment plan. Liaison with other physicians/providers. Progress Note: Stated that he was doing well, spoke with his uncle, had lunch, no issues. Has been sleeping during the day time somewhat. Stated that he is still feeling tired but other than that no issues. Stated that he is taking his haldol dec and we discussed need for oral meds for some time prior to only taking dec. discussed drug abstinence when he is discharged. MSE: Pleasant man, quiet, withdrawn. His eye contact is good. He has no psychomotor slowing or agitation. He has no tremor or tics. His mood is good and affect is constricted. His thought process is goal oriented and concrete. He has no thought disorder grossly evident, but some oddness in relating as interview progresses. Not hallucinating and no evidence of thoughts to harm self/others. Insight is fair, judgment fair. Plan: stabilizing, continue current plan of care.
[2017-07-29 19:46] VITALS: BP 139/77
[2017-07-30 07:40] VITALS: BP 114/82
[2017-07-30 12:09] VITALS: BP 136/77
--- NOTE | 2017-07-30 12:54 | SOCIAL WORKER PROG NOTE PSYCH ---
Social Work Progress Note Progress Note Screened Noe with the [facility]. Their game breeding farm manager informed me that they would most likely take him into the program tomorrow. They also sent their clinical employment evaluator/case manager to the unit to meet with Noe. Nicci from [facility] called and left a message in regards to screening Noe. I attempted to reach her, but got her voicemail. Asked that she call the nurses station to reach him to do the screening. Noe completed the screening with [facility]. Received a call from Barbara ( habitat management coordinator) that the screening went well and she would be presenting his info to the team. Bed availability may be around a week. I told her he is most likely discharging to [facility] tomorrow. Spoke with Noe who is open to taking the bed at the [facility] tomorrow. He would prefer to schedule an intake at [facility] vs. attending IOP at [facility] due to the transportation. He signed a release for his sister Mia. I called her and left a message. [facility] will be able to pick him up at 11am tomorrow.
--- NOTE | 2017-07-30 12:55 | CP SOUTH PROGRESS NOTE PSYCH ---
Psych (Inpt) Progress Note Progress Note Include the following elements, when applicable: Involvement in the active treatment of the patient with behavioral observations of the patient and the patient's response to the treatment. Review of the ongoing treatment process in the context of the treatment plan. Indication of how multi-disciplinary staff members are carrying out the treatment plan. Plans for future interventions and recommendations for revision of the treatment plan. Liaison with other physicians/providers. Progress Note: Dr. Evans's notes reviewed. Case and treatment plan discussed in team meeting. Staff reports that the patient received Haldol Decanoate injection on 07/27/17. EKG was cleared. Patient has reported he is adapting to new medication dosing. Phone screen with Nicki Brennan is scheduled for 1 PM. We are looking into possible placement at [facility]. Hospitalist started the patient on hydrochlorothiazide and Lipitor. Patient seen at 11:34 AM. States he is all right. Has no complaints. Asking how he can get on disability. I recommended he talked to his [facility] therapist, Roddy. Patient reports he missed his appointment with his future [facility] bilingual case manager on 07/24/17. Affect is calm and blunted. Reports tolerating medications except trazodone did not work at 50 mg. He will consider trying repeat dose of 50 mg tonight. Reports mood is all right. Rates sad mood and anxiety both 6/ 10. Denies feeling hopeless, helpless, worthless or guilty. Denies active and passive suicidal ideation. Denies homicidal ideation. Denies auditory and visual hallucinations. I asked if anyone is to out to harm him, and he responded that he did not know. Reports sleep was not great. Describing appetite as "I'm eating." States he does not have much energy. Patient is reluctant to go to [facility] in [place] because of its neighborhood. He feels that he could be in some danger from people in the neighborhood and also at risk for relapse. He feels ready for discharge depending on placement. He feels safe about discharge except he is concerned about a dangerous neighborhood. IMPRESSION: Slow progress. Continue present treatment plan. We are looking into placement options, including [facility] in [place].
[2017-07-30 16:07] VITALS: BP 132/72
[2017-07-30 19:47] VITALS: BP 140/73
[2017-07-31 07:57] VITALS: BP 130/76
[2017-07-31] MEDS ORDERED: NICOTINE PATCH1 EAC2 TOP (10:06)
[2017-07-31] MEDS ORDERED: ATORVASTATIN CA10 M1 PO (10:06)
[2017-07-31] MEDS ORDERED: TRAZODONE HCL50 M1 PO (10:06)
[2017-07-31] MEDS ORDERED: BENZTROPINE MESY1 M1 PO (10:06)
[2017-07-31] MEDS ORDERED: HYDROCHLOROTH12.5 M3 PO (10:06)
[2017-07-31] MEDS ORDERED: HALOPERIDOL5 MG PO (10:06)
[2017-07-31] MEDS ORDERED: HALDOL DEC100 MG/1 M IM (10:09)
--- NOTE | 2017-07-31 10:14 | SOCIAL WORKER PROG NOTE PSYCH ---
Social Work Progress Note Progress Note Met with Noe this morning. He is looking forward to his d/c plan. He isn't very concerned about going to [place]. Encouraged him to utilize his supports while at the program and attend AA meetings. He seemed open to that plan. He was informed that he is scheduled for an intake at [facility] in [place] for next Sunday at 10am. Denies paranoia today. Reports feeling some anxiety about leaving. Validated his feelings of working on a plan to stay stable, meet new people ect.. Encouraged him to continue to follow up with rehabs such as [facility] and [facility]. Told him I would update [facility] and A on his plan. I called [facility] and left Barbara a message about his d/c plan. Also called [facility] and left a message.
--- NOTE | 2017-07-31 10:19 | Patient Discharge Instructions ---
Psych Discharge Inst General Discharge Information Reason for Admission: Sister felt he wasn't himself. Reportedly was intermittently compliant with medication. Reportedly was drinking alcohol. Was not seeing visiting nurse. Psy Discharge Primary Diag+ Schizophrenia Psy Discharge Secondary Diag+ Alcohol use d/o, moderate Hx cannabis use disorder Hx PCP use disorder Hypertension Hyperlipidemia Summary Tests/Major Procedures Lab Amphetamines Screen < 100 NG/ML 07/24/17 1645 Barbiturate Screen < 60 NG/ML 07/24/17 1645 Methadone Screen < 40 NG/ML 07/24/17 1645 Serum Alcohol < 10.0 MG/DL 07/24/17 1640 U Benzodiazepines Scrn < 85 NG/ML 07/24/17 1645 Ur Phencyclidine Scrn < 6.00 NG/ML 07/24/17 1645 Urine Cannabis Screen < 5.00 NG/ML 07/24/17 1645 Urine Cocaine Screen < 50 NG/ML 07/24/17 1645 Urine Opiates Screen < 100.00 NG/ML 07/24/17 1645 ALT 65 U/L 07/27/17 0617 AST 40 U/L 07/27/17 06 Anion Gap 17 H 07/24/17 [facility] BUN 12 mg/dL 07/24/171639 Carbon Dioxide 27 mmol/L 07/24/17 1640 Chloride 100 mmol/L 07/24/171639 Cholesterol 274 MG/DL H 07/27/17 06 Cholesterol/HDL Ratio 4 % 07/27/17616 Creatinine 1.0 mg/dL 07/24/171639 Estimated GFR > 60 ml/min 07/24/171639 HDL Cholesterol 62 mg/dL H 07/27/17 06 Hemoglobin A1c 5.6 % 07/24/17 [facility] LDL Cholesterol, Calc 154 mg/dL H 07/27/17 0617 Potassium 4.1 mmol/L 07/24/171639 Sodium 144 mmol/L 07/24/171639 Triglycerides 293 mg/dL H 07/27/17 0617 Absolute Lymphocytes 1.1 /CUMM L 07/24/17 1640 Hct 47.9 % 07/24/17 1640 Hgb 16.3 G/DL 07/24/171639 Lymphocytes % 20.4 % L 07/24/171639 WBC 5.5 /CUMM 07/24/17 1640 Amphetamines Screen < 100 NG/ML 07/24/17 1645 Barbiturate Screen < 60 NG/ML 07/24/17 1645 Methadone Screen < 40 NG/ML 07/24/17 1645 Serum Alcohol < 10.0 MG/DL 07/24/17 1640 U Benzodiazepines Scrn < 85 NG/ML 07/24/17 1645 Ur Phencyclidine Scrn < 6.00 NG/ML 07/24/17 1645 Urine Cannabis Screen < 5.00 NG/ML 07/24/17 1645 Urine Cocaine Screen < 50 NG/ML 07/24/17 1645 Urine Opiates Screen < 100.00 NG/ML 07/24/17 1645 EKG 07/27/17 showed sinus rhythm @ 82, probable left ventricular hypertrophy ( Insig. Chg), ST elev. probable normal early repol pattern (Insig. Chg), no significant change, abnormal EKG, QT 356, QTc 416. Studies Pending at DC: None. Patient Instructions Contact Information Your Psychiatrist on [facility] was Magdy Esquivel MD * If you are experiencing an emergency related to this hospitalization, please call [phone] to contact the treating psychiatrist or the psychiatrist-on- call. * To Request a copy of your medical records, please contact the Medical Records Department at [phone]. * To request results of studies pending at the time of discharge, please call [phone]. * Continue your Medications until directed to stop by your Healthcare provider. General Medication Information Please continue to take your new medications and your continued home medications , unless otherwise indicated on your discharge medication list, or unless directed by your MD or PROCUREMENT ACCOUNTANT to stop them. Special Instructions Diet Heart Healthy (Avoid cholesterol and salt.) Activity Normal Other Inst/Recommendations Please see PCP for abnormal labs listed above. Stay clean! - Tobacco Use Treatment Offered Post DC Medications Offered: Script Given-See Med List Post DC Tobacco Treatment Plan: [facility] Program Appt Date: 08/08/17 Program Appt Time: 1600 - EtOH/Drug Use D/O Treatment Offered Post DC Medications Offered: Med Not Indicated for D/O Post DC EtOH/SubAbuse [place] Plan: Other SubAbuse/Dual Pgm ([facility] Program Appt Date: 08/01/17 (Intake TBA.) Program Appt Time: 0900 Metabolic Screening () Not Applicable, patient not on a neuroleptic. OR () Patient on a neuroleptic(s) . Enter below results for Hemoglobin A1C, and lipid panel if obtained during the last 365 days. BMI: 27.800 Blood Pressure: 130/76 Laboratory Results From [facility] (If applicable): [x] Please see lab section above. Advance Directives Does the Patient have Medical Advance Directives No/Refused further info Does Pt have Psychiatric Advance Directives? No/Refused further info Does Patient have a Designated Surrogate Decision Maker: No Information About Psychiatric Advance Directives Provided? Refused Discharge Plan Post Hospital Treatment Plan: [facility] today, 07/31/17. Patient is being [facility] to [facility]. Patient will need next Haldol dec injection on 08/24/17. Patient is pursuing residential rehab at [facility].
--- NOTE | 2017-07-31 11:47 | CP SOUTH PROGRESS NOTE PSYCH ---
Psych (Inpt) Progress Note Progress Note Include the following elements, when applicable: Involvement in the active treatment of the patient with behavioral observations of the patient and the patient's response to the treatment. Review of the ongoing treatment process in the context of the treatment plan. Indication of how multi-disciplinary staff members are carrying out the treatment plan. Plans for future interventions and recommendations for revision of the treatment plan. Liaison with other physicians/providers. Progress Note: Case and treatment plan discussed in team meeting. Staff reports that the patient is selective about group attendance. He told staff that he is leaving today and is ready. Patient will be going to [place] [facility]. He will be referred to [facility]. Patient will continue to pursue placement at an inpatient rehab, [facility]. Patient seen at 10:27 AM. He was in group prior to meeting with me in office. Feels all right. Feels a little tired. Appears awake and alert. Denies stiffness. Affect is calm and blunted. Reports mood is all right, a little anxious, just worried what it is going to be like. Rates anxiety about 7/10. Rates sad mood 4/10. Denies feeling hopeless, helpless, worthless or guilty. Denies active and passive suicidal ideation. Denies homicidal ideation. Denies auditory and visual hallucinations. When asked if anyone is out to harm him, he replied "I don't know." Reports sleep is all right but he had a bad dream. Describes appetite as "I'm eating, it's good." Reports energy is low. Feels ready and safe for discharge. IMPRESSION: Condition improved. Okay for discharge today to [facility] in [place]. Patient is being referred to [facility].
--- NOTE | 2017-07-31 11:51 | SOCIAL WORKER PROG NOTE PSYCH ---
Social Work Progress Note Faxed Referral(s) Referred To: [facility] Faxed to: [facility] Fax #: [phone] Faxed by: Mirtha Krishnan Date faxed: 07/31/17 Time Faxed: [phone]
--- NOTE | 2017-07-31 12:54 | DISCHARGE SUMMARY REPORT-PSYCH ---
Visit Information Visit Dates/Diagnosis' Admission Date: 07/25/17 Discharge Date: 07/31/17 Reason for Admission: Sister felt he wasn't himself. Reportedly was intermittently compliant with medication. Reportedly was drinking alcohol. Was not seeing visiting nurse. Psy Discharge Primary Diag: Schizophrenia Psy Discharge Secondary Diag: Alcohol use d/o, moderate Hx cannabis use disorder Hx PCP use disorder Hypertension Hyperlipidemia Hospital Course Significant Lab Findings: Lab Amphetamines Screen < 100 NG/ML 07/24/17 1645 Barbiturate Screen < 60 NG/ML 07/24/17 1645 Methadone Screen < 40 NG/ML 07/24/17 1645 Serum Alcohol < 10.0 MG/DL 07/24/17 1640 U Benzodiazepines Scrn < 85 NG/ML 07/24/17 1645 Ur Phencyclidine Scrn < 6.00 NG/ML 07/24/17 1645 Urine Cannabis Screen < 5.00 NG/ML 07/24/17 1645 Urine Cocaine Screen < 50 NG/ML 07/24/17 1645 Urine Opiates Screen < 100.00 NG/ML 07/24/17 1645 ALT 65 U/L 07/27/17 0617 AST 40 U/L 07/27/17 0617 Anion Gap 17 H 07/24/17 [facility] BUN 12 mg/dL 07/24/171639 Carbon Dioxide 27 mmol/L 07/24/17 1640 Chloride 100 mmol/L 07/24/171639 Cholesterol 274 MG/DL H 07/27/17 0617 Cholesterol/HDL Ratio 4 % 07/27/1717 Creatinine 1.0 mg/dL 07/24/171639 Estimated GFR > 60 ml/min 07/24/171639 HDL Cholesterol 62 mg/dL H 07/27/17 0617 Hemoglobin A1c 5.6 % 07/24/17 1640 LDL Cholesterol, Calc 154 mg/dL H 07/27/17 0617 Potassium 4.1 mmol/L 07/24/17 1640 Sodium 144 mmol/L 07/24/17 1640 Triglycerides 293 mg/dL H 07/27/17 0617 Absolute Lymphocytes 1.1 /CUMM L 07/24/17 1640 Hct 47.9 % 07/24/17 1640 Hgb 16.3 G/DL 07/24/17 1640 Lymphocytes % 20.4 % L 07/24/17 1640 WBC 5.5 /CUMM 07/24/17 1640 Amphetamines Screen < 100 NG/ML 07/24/17 1645 Barbiturate Screen < 60 NG/ML 07/24/17 1645 Methadone Screen < 40 NG/ML 07/24/17 1645 Serum Alcohol < 10.0 MG/DL 07/24/17 1640 U Benzodiazepines Scrn < 85 NG/ML 07/24/17 1645 Ur Phencyclidine Scrn < 6.00 NG/ML 07/24/17 1645 Urine Cannabis Screen < 5.00 NG/ML 07/24/17 1645 Urine Cocaine Screen < 50 NG/ML 07/24/17 1645 Urine Opiates Screen < 100.00 NG/ML 07/24/17 1645 EKG 07/27/17 showed sinus rhythm @ 82, probable left ventricular hypertrophy ( Insig. Chg), ST elev. probable normal early repol pattern (Insig. Chg), no significant change, abnormal EKG, QT 356, QTc 416. Course Complications: None. Consultations: The patient was seen for admission H&P by Dr. Martínez, who noted: "26 yo M recently discharged from [facility], is admitted for schizophrenia and depression. - Continue management as per Psych team. - Smoking cessation counseling, nicotine patch. DVT ppx - low risk." Dr. Pineda started the patient on HCTZ for hypertension and Lipitor for hyperlipdemia. Allergies: Coded Allergies: No Known Allergies (04/24/17) Hospital Course/TX Response: The patient was monitored on the unit for safety, psychosis and mood disorder. He participated in multi-modal treatments on the unit. Home medications were restarted. Patient consented to Haldol decanote 100 mg IM q 4 weeks and he received his first dose on 07/27/17. He understood that he will need to overlap oral Haldol with Haldol decanoate for several months. He was started on HCTZ and Lipitor for hypertension and hyperlipidemia, respectively. Psychosis has remitted. Progress note from date of discharge, 07/31/17: Case and treatment plan discussed in team meeting. Staff reports that the patient is selective about group attendance. He told staff that he is leaving today and is ready. Patient will be going to [place] [facility]. He will be referred to [facility]. Patient will continue to pursue placement at an inpatient rehab, [facility]. Patient seen at 10:27 AM. He was in group prior to meeting with me in office. Feels all right. Feels a little tired. Appears awake and alert. Denies stiffness. Affect is calm and blunted. Reports mood is all right, a little anxious, just worried what it is going to be like. Rates anxiety about 7/10. Rates sad mood 4/10. Denies feeling hopeless, helpless, worthless or guilty. Denies active and passive suicidal ideation. Denies homicidal ideation. Denies auditory and visual hallucinations. When asked if anyone is out to harm him, he replied "I don't know." Reports sleep is all right but he had a bad dream. Describes appetite as "I'm eating, it's good." Reports energy is low. Feels ready and safe for discharge. IMPRESSION: Condition improved. Okay for discharge today to [facility] in [place]. Patient is being referred to [facility]. Discharge HBIPS - Tobacco Use Treatment Offered Post DC Medications Offered: Script Given-See Med List Post DC Tobacco Treatment Plan: [facility] Program Appt Date: 08/08/17 Program Appt Time: 1600 - EtOH/Drug Use D/O Treatment Offered Post DC Medications Offered: Med Not Indicated for D/O Post DC EtOH/SubAbuse TX Plan: Other SubAbuse/Dual Pgm ([facility]) Program Appt Date: 08/07/17 Program Appt Time: 1000 Metabolic Screening - Screen if on a Neuroleptic Medication - Metabolic screening should include: - Blood Pressure, BMI, Glucose or Hgb A1c, & a - Lipid profile from within the past 365 days. Metabolic Screening () Not Applicable, patient not on a neuroleptic. OR () Patient on a neuroleptic(s) . Enter below results for Hemoglobin A1C, and lipid panel if obtained during the last 365 days. BMI: 27.800 Blood Pressure: 130/76 Laboratory Results From [facility] (If applicable): [x] Lab Cholesterol 274 MG/DL H 07/27/17 0617 Cholesterol/HDL Ratio 4 % 07/27/17 0617 HDL Cholesterol 62 mg/dL H 07/27/17 0617 Hemoglobin A1c 5.6 % 07/24/17 1640 LDL Cholesterol, Calc 154 mg/dL H 07/27/17 0617 Triglycerides 293 mg/dL H 07/27/17 0617 Discharge Instructions General Discharge Information Multiple Neuroleptics: ([x]) Not Applicable OR Document below three failed attempts at monotherapy, or a plan to taper to monotherapy, or augmentation of Clozapine. () Discharge Diet Heart Healthy (Avoid cholesterol and salt.) Discharge Activity Normal DC Disposition: The patient is going to [facility], [facility], 07/31/17. Referrals Ordered Referrals Provider Referral 08/07/17 For Groups: [[facility]] 08/07/17 pt has intake at 10am Address is [address], [place] Provider Referral 07/31/17 For Groups: [[facility]] [facility] admission 07/31/17 [address], [place] [phone] Provider Referral For Groups: [error] Prescriptions Continue taking these medications: Haloperidol (Haloperidol) 5 MG TABLET 1 Tablet ORAL TWICE DAILY Qty = 28 Comments: Last Taken:07/31/17 Time:0830 This prescription has been renewed Start taking the following new medications: Nicotine (Nicotine Patch) 14 MG/24 HOUR PATCH.TD24 14 Milligram On the skin DAILY Qty = 14 No Refills Comments: Last Taken:07/31/17 Time:0830 Atorvastatin Calcium (Atorvastatin Calcium) 10 MG TABLET 10 Milligram ORAL 5 PM Qty = 14 No Refills Comments: Last Taken:07/30/17 Time:2130 Trazodone HCl (Trazodone HCl) 50 MG TABLET 1-2 Tablet ORAL AT BEDTIME as needed for INSOMNIA Qty = 28 No Refills Comments: Last Taken:07/30/17 Time:2130 Benztropine Mesylate (Benztropine Mesylate) 1 MG TABLET 1 Milligram ORAL Every 12 hours as needed as needed for if having muscle stiffness Qty = 14 No Refills Comments: Last Taken:NOT GIVEN IN THE HOSPITAL Time: Hydrochlorothiazide (Hydrochlorothiazide) 12.5 MG CAPSULE 12.5 Milligram ORAL DAILY Qty = 14 No Refills Comments: Last Taken:07/30/17 Time:0900 Haloperidol Decanoate (Haldol Decanoate 100) 100 MG/ML AMPUL 100 Milligram INTRAMUSC [id number] Qty = 1 No Refills Instructions: Due on 08/24/17. Last given on 07/27/17. Comments: Last Taken:07/27/17 Time:1400 Other Inst/Recommendations Please see PCP for abnormal labs listed above. Stay clean! Copies To: Judy Dowd APRN
== END 2017-07-31 11:31 | DRG 750 ==
LOC: ERH 15:42 → CP SOUTH 07-25 14:10 → ERHI 07-25 14:10 → ENTRNSPT 07-25 16:50 → CP SOUTH 07-25 17:14 → CMPTRNSPT 07-25 17:22 → ENRESERV 07-25 23:59 → CP SOUTH 07-26 11:12
PROVIDERS: Emergency Medicine; Student in an Organized Health Care Education/Training Program
DX: F20.9 Schizophrenia, unspecified (principal); F10.20 Alcohol dependence, uncomplicated; F12.90 Cannabis use, unspecified, uncomplicated; Z87.898 Personal history of other specified conditions; I10 Essential (primary) hypertension; E78.5 Hyperlipidemia, unspecified
CPT/HCPCS: 36415; 80307; 93005; 93010; G0480; J1631; Q2036